=== PATIENT | female | born 1935 | race African-American/Black ===

== ENCOUNTER 2020-05-16 14:53 | Inpatient (IN) | payer MEDICARE, BC ==
[~2020-05-16] VITALS: Ht 162.6 cm; Wt 68.0 kg
[~2020-05-16 14:53] MED LIST: ASPI-1406 PO; ATOR20TA65 PO
[2020-05-16] MEDS ORDERED: SODIUM CHLORIDE 0.9% 1,000 ML IV ONE (15:45)
[2020-05-16 16:14] LABS: BASOPHILS % 0.4 % (0.0-2.0); EOSINOPHILS % 0.1 % (0.0-5.0); HEMATOCRIT. 38.8 % (36.0-48.0); HEMOGLOBIN. 12.8 g/dL (12.0-16.0); LYMPHOCYTES % 7.5 % (20.0-50.0); MEAN CORPUSCULAR VOLUME 90.6 fL (81.0-99.0); MEAN PLATELET VOLUME 8.9 fl (7.4-10.4); MONOCYTES % 8.4 % (2.0-8.0); NEUTROPHILS % 83.6 % (40.0-76.0); PLATELET 105 x1000/uL (130-400); RED BLOOD CELL COUNT 4.29 mill/uL (4.2-5.4); RED CELL DISTRIBUTION WIDTH 14.8 % (11.6-14.6)
[2020-05-16 16:21] LABS: CHLORIDE 99 mEq/L (98-107)
[2020-05-16 16:23] LABS: D-DIMER 3.28 mg/L FEU (<0.50); INR 1.1; PROTHROMBIN TIME 11.1 sec (9.6-11.0)
[2020-05-16] MEDS ORDERED: ONDANSETRON HCL 4MG/2ML INJ IV PRN (21:15)
[2020-05-16] MEDS ORDERED: ACETAMINOPHEN 325MG TABLET PO PRN (21:15)
[2020-05-16] MEDS ORDERED: CLONIDINE 0.1MG TABLET PO PRN (21:15)
[2020-05-16] MEDS ORDERED: MAGNESIUM/ALUMINUM HYDROXIDE/SIMETHICONE 30ML UDC PO PRN (21:15)
[2020-05-16] MEDS ORDERED: GUAIFENESIN 200MG/10ML SUGAR FREE UDC PO PRN (21:15)
[2020-05-16] MEDS ORDERED: ZOLPIDEM TARTRATE 5MG TABLET PO PRN (21:15)
[2020-05-16] MEDS: SODIUM CHLORIDE 0.9% INJ 3ML FLUSH IVF SCH (22:00)
[2020-05-17] MEDS: SODIUM CHLORIDE 0.9% INJ 3ML FLUSH IVF SCH ×3 (06:35→22:07)
[2020-05-17] MEDS: ENOXAPARIN 30MG/0.3ML SYR SUBCUT SCH (09:00)
[2020-05-18] MEDS ORDERED: IOHEXOL-350 100 ML BOTTLE ONE (03:00)
[2020-05-18] MEDS: ACETAMINOPHEN 325MG TABLET PO PRN (05:07)
[2020-05-18] MEDS: ENOXAPARIN 30MG/0.3ML SYR SUBCUT SCH (09:00)
[2020-05-18 11:30] VITALS: BP 115/62
[2020-05-18 12:00] VITALS: BP 115/62
[2020-05-18] MEDS: SODIUM CHLORIDE 0.9% INJ 3ML FLUSH IVF SCH ×2 (13:39→22:54)
[2020-05-18] MEDS ORDERED: [UNRECOGNIZED DRUG - CODE] PO (14:19)
[2020-05-18] MEDS ORDERED: NAPR220C61 MT (14:19)
[2020-05-18] MEDS ORDERED: ALBU6.7H9 INH (14:19)
[2020-05-18] MEDS ORDERED: BRIM10DR2 EACHEYE (14:19)
[2020-05-18] MEDS ORDERED: MECL-159 MT (14:20)
[2020-05-18] MEDS ORDERED: TRAV2.5D6 EACHEYE (14:20)
[2020-05-18] MEDS ORDERED: MECLIZINE 25MG TABLET PO PRN (19:00)
[2020-05-18 20:00] VITALS: BP 121/59
[2020-05-18] MEDS ORDERED: LEVOFLOXACIN 500MG PREMIX 100 ML IV NR (21:00)
[2020-05-19] VITALS: BP 110/55
[2020-05-19] MEDS: ACETAMINOPHEN 325MG TABLET PO PRN (00:52)
[2020-05-19 04:00] VITALS: BP 97/49
[2020-05-19 08:00] VITALS: BP 121/47
[2020-05-19] MEDS: ENOXAPARIN 30MG/0.3ML SYR SUBCUT SCH (09:00)
[2020-05-19 09:18] LABS: BASOPHILS % 0.4 % (0.0-2.0); EOSINOPHILS % 0.1 % (0.0-5.0); HEMOGLOBIN. 12.3 g/dL (12.0-16.0); LYMPHOCYTES % 11.5 % (20.0-50.0); MEAN CORPUSCULAR VOLUME 90.4 fL (81.0-99.0); PLATELET 132 x1000/uL (130-400); RED BLOOD CELL COUNT 4.09 mill/uL (4.2-5.4); RED CELL DISTRIBUTION WIDTH 15.3 % (11.6-14.6)
[2020-05-19 12:00] VITALS: BP 111/49
[2020-05-19] MEDS: SODIUM CHLORIDE 0.9% INJ 3ML FLUSH IVF SCH ×2 (13:08→22:00)
[2020-05-19] MEDS: DEXT 5%/0.45% NACL 1000ML 1,000 ML IV SCH (13:09)
[2020-05-19 16:00] VITALS: BP 99/51
[2020-05-19] MEDS ORDERED: ALBUTEROL (0.083%) 2.5MG/3ML NEB INH PRN (18:45)
[2020-05-19] MEDS ORDERED: TRAMADOL 50MG TABLET PO PRN (18:45)
[2020-05-19] MEDS: DEXAMETHASONE 10 MG/ML VIAL IV SCH (18:54)
[2020-05-19] MEDS: ERGOCALCIFEROL 50000UNITS CAPSULE PO SCH (18:54)
[2020-05-19 19:37] LABS: CLARITY URINE CLOUDY (CLEAR); COLOR URINE YELLOW (YELLOW); KETONES URINE TRACE (NEGATIVE); LEUKOCYTE ESTERASE URINE TRACE (NEGATIVE); NITRITE URINE NEGATIVE (NEGATIVE); OCCULT BLOOD URINE NEGATIVE (NEGATIVE); PROTEIN URINE 1+ (NEGATIVE); SPECIFIC GRAVITY URINE 1.024 (1.005-1.030)
[2020-05-19 20:00] VITALS: BP 104/57
[2020-05-19] MEDS: FAMOTIDINE 20MG TABLET PO SCH (21:34)
[2020-05-19] MEDS: LEVOFLOXACIN 250MG PREMIX 50 ML IV SCH (21:35)
[2020-05-20 00:33] VITALS: BP 98/41
[2020-05-20] MEDS: DEXT 5%/0.45% NACL 1000ML 1,000 ML IV SCH ×2 (02:07→15:22)
[2020-05-20 04:00] VITALS: BP 110/56
[2020-05-20] MEDS: SODIUM CHLORIDE 0.9% INJ 3ML FLUSH IVF SCH ×3 (06:17→21:46)
[2020-05-20] MEDS: DEXAMETHASONE 10 MG/ML VIAL IV SCH (09:02)
[2020-05-20] MEDS: ENOXAPARIN 30MG/0.3ML SYR SUBCUT SCH (09:03)
[2020-05-20 09:53] LABS: BASOPHILS % 0.4 % (0.0-2.0); EOSINOPHILS % 0.1 % (0.0-5.0); HEMATOCRIT. 36.1 % (36.0-48.0); LYMPHOCYTES % 8.2 % (20.0-50.0); MEAN CORPUSCULAR HEMOGLOBIN 29.8 pg (28.0-32.0); MEAN CORPUSCULAR VOLUME 89.6 fL (81.0-99.0); MEAN PLATELET VOLUME 8.7 fl (7.4-10.4); MONOCYTES % 11.8 % (2.0-8.0); NEUTROPHILS % 79.5 % (40.0-76.0); PLATELET 158 x1000/uL (130-400); RED BLOOD CELL COUNT 4.03 mill/uL (4.2-5.4); RED CELL DISTRIBUTION WIDTH 14.9 % (11.6-14.6)
[2020-05-20 09:59] LABS: CHLORIDE 104 mEq/L (98-107)
[2020-05-20 12:00] VITALS: BP 114/68
[2020-05-20 16:00] VITALS: BP 108/54
[2020-05-20 20:00] VITALS: BP 118/60
[2020-05-20] MEDS: LEVOFLOXACIN 250MG PREMIX 50 ML IV SCH (21:46)
[2020-05-20] MEDS: FAMOTIDINE 20MG TABLET PO SCH (21:46)
[2020-05-21] VITALS: BP 111/66
[2020-05-21 04:00] VITALS: BP 147/60
[2020-05-21] MEDS: SODIUM CHLORIDE 0.9% INJ 3ML FLUSH IVF SCH ×3 (06:00→21:03)
[2020-05-21 08:00] VITALS: BP_SYST 114; BP_SYST 119; BP_DIAS 65
[2020-05-21] MEDS: DEXAMETHASONE 10 MG/ML VIAL IV SCH (08:41)
[2020-05-21] MEDS: ENOXAPARIN 30MG/0.3ML SYR SUBCUT SCH (08:42)
[2020-05-21 12:00] VITALS: BP 114/59
[2020-05-21] MEDS ORDERED: ERGOCALCIFEROL 50000UNITS CAPSULE PO SCH (14:45)
[2020-05-21 16:00] VITALS: BP 122/66
[2020-05-21] MEDS: DOCUSATE SODIUM 100MG CAPSULE PO SCH (16:39)
[2020-05-21 20:00] VITALS: BP 122/65
[2020-05-21] MEDS: ASCORBIC ACID 500 MG TABLET PO SCH (21:02)
[2020-05-21] MEDS: FAMOTIDINE 20MG TABLET PO SCH (21:02)
[2020-05-21] MEDS: LEVOFLOXACIN 250MG PREMIX 50 ML IV SCH (21:02)
[2020-05-22] VITALS: BP 168/69
[2020-05-22] MEDS: DIPHENHYDRAMINE 50MG/ML VIAL IV PRN (01:41)
[2020-05-22] MEDS: SODIUM CHLORIDE 0.9% INJ 3ML FLUSH IVF SCH ×3 (01:41→22:08)
[2020-05-22 04:00] VITALS: BP 140/66
[2020-05-22 08:00] VITALS: BP_SYST 12; BP_SYST 120; BP_DIAS 57
[2020-05-22] MEDS: DOCUSATE SODIUM 100MG CAPSULE PO SCH ×2 (09:24→16:53)
[2020-05-22] MEDS: ASCORBIC ACID 500 MG TABLET PO SCH ×2 (09:24→22:07)
[2020-05-22] MEDS: ENOXAPARIN 30MG/0.3ML SYR SUBCUT SCH (09:25)
[2020-05-22] MEDS: DEXAMETHASONE 10 MG/ML VIAL IV SCH (09:25)
[2020-05-22 12:00] VITALS: BP 130/69
[2020-05-22] MEDS: IPRATROPIUM/ALBUTEROL 0.5-3(2.5)MG/3ML NEB HHN SCH (18:13)
[2020-05-22 20:00] VITALS: BP 117/61
[2020-05-22] MEDS: METHYLPREDNISOLONE SOD SUCC 125 MG/2 ML VIAL IV SCH (22:07)
[2020-05-22] MEDS: FAMOTIDINE 20MG TABLET PO SCH (22:07)
[2020-05-22] MEDS: LEVOFLOXACIN 250MG PREMIX 50 ML IV SCH (22:08)
[2020-05-23] VITALS: BP 135/69
[2020-05-23 04:00] VITALS: BP 133/66
[2020-05-23] MEDS: METHYLPREDNISOLONE SOD SUCC 125 MG/2 ML VIAL IV SCH ×3 (06:39→21:24)
[2020-05-23] MEDS: SODIUM CHLORIDE 0.9% INJ 3ML FLUSH IVF SCH ×3 (06:39→21:24)
[2020-05-23 08:00] VITALS: BP 132/64
[2020-05-23] MEDS: IPRATROPIUM/ALBUTEROL 0.5-3(2.5)MG/3ML NEB HHN SCH ×3 (09:05→22:37)
[2020-05-23] MEDS: ENOXAPARIN 30MG/0.3ML SYR SUBCUT SCH (10:29)
[2020-05-23] MEDS: DOCUSATE SODIUM 100MG CAPSULE PO SCH ×2 (10:30→18:04)
[2020-05-23] MEDS: ASCORBIC ACID 500 MG TABLET PO SCH ×2 (10:30→21:24)
[2020-05-23] MEDS: ACETAMINOPHEN 325MG TABLET PO PRN (10:31)
[2020-05-23 11:45] LABS: BG BASE EXCESS -1.2 mmol/L (-2.0-2.0); BG CARBOXYHEMOGLOBIN 0.4 % (0.5-1.5); BG DEOXYHEMOGLOBIN 17.5 % (0.0-5.0); BG FRACTION INSPIRED OXYGEN 100; BG HCO3 ACT 20.6 mmol/L (22.0-26.0); BG METHEMOGLOBIN 0.2 % (0.0-1.5); BG OXYGEN SATURATION 82.4 % (92.0-98.5); BG OXYHEMOGLOBIN 81.9 % (94.0-97.0); BG PO2 45.1 mmHg (75.0-100.0); BG SAMPLE SITE RIGHT RADIAL; BG TOTAL HEMOGLOBIN 13.9 g/dL (12.0-18.0); BG VENT MODE MASK - NRB
[2020-05-23 12:00] VITALS: BP 140/70
[2020-05-23 16:00] VITALS: BP 135/70
[2020-05-23 16:06] LABS: BG BASE EXCESS 0.8 mmol/L (-2.0-2.0); BG CARBOXYHEMOGLOBIN 0.3 % (0.5-1.5); BG DEOXYHEMOGLOBIN 5.7 % (0.0-5.0); BG HCO3 ACT 23.1 mmol/L (22.0-26.0); BG METHEMOGLOBIN 0.2 % (0.0-1.5); BG OXYGEN SATURATION 94.3 % (92.0-98.5); BG OXYHEMOGLOBIN 93.8 % (94.0-97.0); BG PCO2 30.4 mmHg (35.0-45.0); BG PH 7.499 (7.350-7.450); BG PO2 73.1 mmHg (75.0-100.0); BG SAMPLE SITE RIGHT BRACHIAL; BG TOTAL HEMOGLOBIN 13.2 g/dL (12.0-18.0); BG VENT MODE MASK - BIPAP
[2020-05-23 17:38] LABS: CHLORIDE 107 mEq/L (98-107)
[2020-05-23 17:40] LABS: HEMATOCRIT. 37.2 % (36.0-48.0); HEMOGLOBIN. 12.1 g/dL (12.0-16.0); MEAN CORPUSCULAR HEMOGLOBIN 29.4 pg (28.0-32.0); MEAN CORPUSCULAR VOLUME 90.8 fL (81.0-99.0); MEAN PLATELET VOLUME 8.5 fl (7.4-10.4); PLATELET 181 x1000/uL (130-400); RED CELL DISTRIBUTION WIDTH 15.7 % (11.6-14.6)
[2020-05-23 18:37] LABS: PLATELET ESTIMATE NORMAL
[2020-05-23 20:00] VITALS: BP 113/74
[2020-05-23] MEDS: FAMOTIDINE 20MG TABLET PO SCH (21:24)
[2020-05-24] VITALS: BP 143/84
[2020-05-24] MEDS: IPRATROPIUM/ALBUTEROL 0.5-3(2.5)MG/3ML NEB HHN SCH ×3 (03:41→12:00)
[2020-05-24 04:00] VITALS: BP 122/68
[2020-05-24] MEDS: METHYLPREDNISOLONE SOD SUCC 125 MG/2 ML VIAL IV SCH ×3 (05:11→21:36)
[2020-05-24] MEDS: SODIUM CHLORIDE 0.9% INJ 3ML FLUSH IVF SCH ×3 (05:11→21:11)
[2020-05-24 08:00] VITALS: BP 134/63
[2020-05-24] MEDS: DOCUSATE SODIUM 100MG CAPSULE PO SCH ×2 (08:33→17:00)
[2020-05-24] MEDS: ASCORBIC ACID 500 MG TABLET PO SCH ×2 (08:33→21:11)
[2020-05-24] MEDS: ENOXAPARIN 30MG/0.3ML SYR SUBCUT SCH (08:34)
[2020-05-24 12:00] VITALS: BP 133/69
[2020-05-24] MEDS ORDERED: ENOXAPARIN 40MG/0.4ML SYR SUBCUT NR (12:45)
[2020-05-24 14:02] LABS: BG BASE EXCESS 1.3 mmol/L (-2.0-2.0); BG CARBOXYHEMOGLOBIN 0.3 % (0.5-1.5); BG DEOXYHEMOGLOBIN 8.1 % (0.0-5.0); BG FRACTION INSPIRED OXYGEN 100; BG HCO3 ACT 23.8 mmol/L (22.0-26.0); BG METHEMOGLOBIN 0.1 % (0.0-1.5); BG OXYGEN SATURATION 91.9 % (92.0-98.5); BG OXYHEMOGLOBIN 91.5 % (94.0-97.0); BG PCO2 31.5 mmHg (35.0-45.0); BG PH 7.497 (7.350-7.450); BG PO2 61.5 mmHg (75.0-100.0); BG SAMPLE SITE RIGHT RADIAL; BG TOTAL HEMOGLOBIN 13.1 g/dL (12.0-18.0); BG TOTAL RESPIRATORY RATE 29 b/min; BG VENT MODE MASK - BIPAP
[2020-05-24 16:00] VITALS: BP 139/85
[2020-05-24 20:00] VITALS: BP 138/78
[2020-05-24] MEDS: FAMOTIDINE 20MG TABLET PO SCH (21:11)
[2020-05-24] MEDS: ENOXAPARIN 80MG/0.8ML SYR SUBCUT SCH (22:16)
[2020-05-25] VITALS: BP 133/78
[2020-05-25 04:00] VITALS: BP 127/59
[2020-05-25] MEDS: METHYLPREDNISOLONE SOD SUCC 125 MG/2 ML VIAL IV SCH ×3 (05:37→23:03)
[2020-05-25] MEDS: SODIUM CHLORIDE 0.9% INJ 3ML FLUSH IVF SCH ×3 (06:08→21:28)
[2020-05-25 08:00] VITALS: BP 130/61
[2020-05-25] MEDS: ASCORBIC ACID 500 MG TABLET PO SCH ×2 (09:15→21:28)
[2020-05-25] MEDS: DOCUSATE SODIUM 100MG CAPSULE PO SCH ×2 (09:15→17:00)
[2020-05-25] MEDS: ENOXAPARIN 80MG/0.8ML SYR SUBCUT SCH ×2 (09:16→21:28)
[2020-05-25 12:00] VITALS: BP 145/79
[2020-05-25] MEDS: PANTOPRAZOLE SODIUM 40 MG/VIAL IV SCH (13:34)
[2020-05-25] MEDS: DEXT 5%/0.45% NACL 1000ML 1,000 ML IV SCH (15:43)
[2020-05-25 16:52] LABS: BG BASE EXCESS 0.8 mmol/L (-2.0-2.0); BG CARBOXYHEMOGLOBIN 0.7 % (0.5-1.5); BG DEOXYHEMOGLOBIN 24.5 % (0.0-5.0); BG FRACTION INSPIRED OXYGEN 50; BG HCO3 ACT 23.1 mmol/L (22.0-26.0); BG METHEMOGLOBIN 0.2 % (0.0-1.5); BG OXYGEN SATURATION 75.3 % (92.0-98.5); BG OXYHEMOGLOBIN 74.6 % (94.0-97.0); BG PCO2 30.3 mmHg (35.0-45.0); BG PO2 39.1 mmHg (75.0-100.0); BG SAMPLE SITE RIGHT RADIAL; BG TOTAL HEMOGLOBIN 13.5 g/dL (12.0-18.0); BG TOTAL RESPIRATORY RATE 22 b/min; BG VENT MODE MASK - BIPAP
[2020-05-25 18:00] VITALS: BP 127/62
[2020-05-25 20:00] VITALS: BP 154/70
[2020-05-25] MEDS: IPRATROPIUM/ALBUTEROL 0.5-3(2.5)MG/3ML NEB HHN SCH (21:32)
[2020-05-25 22:19] LABS: BG BASE EXCESS -0.4 mmol/L (-2.0-2.0); BG CARBOXYHEMOGLOBIN 0.2 % (0.5-1.5); BG DEOXYHEMOGLOBIN 6.2 % (0.0-5.0); BG FRACTION INSPIRED OXYGEN 100; BG HCO3 ACT 22.4 mmol/L (22.0-26.0); BG METHEMOGLOBIN 0.3 % (0.0-1.5); BG OXYGEN SATURATION 93.8 % (92.0-98.5); BG OXYHEMOGLOBIN 93.3 % (94.0-97.0); BG PCO2 31.2 mmHg (35.0-45.0); BG PH 7.473 (7.350-7.450); BG PO2 71.3 mmHg (75.0-100.0); BG SAMPLE SITE RIGHT RADIAL; BG TOTAL HEMOGLOBIN 13.5 g/dL (12.0-18.0); BG VENT MODE MASK - BIPAP
[2020-05-26] VITALS: BP 141/71
[2020-05-26] MEDS: IPRATROPIUM/ALBUTEROL 0.5-3(2.5)MG/3ML NEB HHN SCH ×4 (01:26→23:27)
[2020-05-26 04:00] VITALS: BP 136/70
[2020-05-26] MEDS: SODIUM CHLORIDE 0.9% INJ 3ML FLUSH IVF SCH ×2 (06:20→15:13)
[2020-05-26] MEDS: METHYLPREDNISOLONE SOD SUCC 125 MG/2 ML VIAL IV SCH ×3 (06:36→22:44)
[2020-05-26 08:00] VITALS: BP 113/49
[2020-05-26] MEDS: DOCUSATE SODIUM 100MG CAPSULE PO SCH ×2 (09:27→17:00)
[2020-05-26] MEDS: ASCORBIC ACID 500 MG TABLET PO SCH ×2 (09:28→22:43)
[2020-05-26] MEDS: ERGOCALCIFEROL 50000UNITS CAPSULE PO SCH (09:28)
[2020-05-26] MEDS: ENOXAPARIN 80MG/0.8ML SYR SUBCUT SCH ×2 (09:29→22:43)
[2020-05-26] MEDS: PANTOPRAZOLE SODIUM 40 MG/VIAL IV SCH (09:30)
[2020-05-26] MEDS ORDERED: FUROSEMIDE 40MG/4ML VIAL IVP NR (09:45)
[2020-05-26 10:07] LABS: BG BASE EXCESS 0.7 mmol/L (-2.0-2.0); BG CARBOXYHEMOGLOBIN 0.6 % (0.5-1.5); BG DEOXYHEMOGLOBIN 7.3 % (0.0-5.0); BG HCO3 ACT 23.7 mmol/L (22.0-26.0); BG OXYGEN SATURATION 92.7 % (92.0-98.5); BG OXYHEMOGLOBIN 92.1 % (94.0-97.0); BG PCO2 33.2 mmHg (35.0-45.0); BG PH 7.472 (7.350-7.450); BG PO2 65.7 mmHg (75.0-100.0); BG SAMPLE SITE RIGHT BRACHIAL; BG TOTAL HEMOGLOBIN 13.2 g/dL (12.0-18.0); BG VENT MODE MASK - BIPAP
[2020-05-26 12:00] VITALS: BP 113/49
[2020-05-26 14:34] LABS: HEMATOCRIT. 38.8 % (36.0-48.0); HEMOGLOBIN. 12.5 g/dL (12.0-16.0); MEAN CORPUSCULAR HEMOGLOBIN 29.5 pg (28.0-32.0); MEAN CORPUSCULAR VOLUME 91.7 fL (81.0-99.0); MEAN PLATELET VOLUME 8.7 fl (7.4-10.4); PLATELET 178 x1000/uL (130-400); RED BLOOD CELL COUNT 4.23 mill/uL (4.2-5.4); RED CELL DISTRIBUTION WIDTH 15.8 % (11.6-14.6)
[2020-05-26 14:38] LABS: CHLORIDE 115 mEq/L (98-107)
[2020-05-26 16:00] VITALS: BP 117/79
[2020-05-26 16:35] LABS: PLATELET ESTIMATE NORMAL
[2020-05-26 20:00] VITALS: BP 136/83
[2020-05-26] MEDS: DIPHENHYDRAMINE 50MG/ML VIAL IV PRN (23:16)
[2020-05-27] VITALS: BP 142/76
[2020-05-27 04:00] VITALS: BP 154/79
[2020-05-27] MEDS: IPRATROPIUM/ALBUTEROL 0.5-3(2.5)MG/3ML NEB HHN SCH ×3 (04:42→12:59)
[2020-05-27 05:27] VITALS: BP 154/79
[2020-05-27] MEDS: DOCUSATE SODIUM 100MG CAPSULE PO SCH ×3 (09:00→17:00)
[2020-05-27] MEDS: ASCORBIC ACID 500 MG TABLET PO SCH ×3 (09:00→23:26)
[2020-05-27] MEDS: ENOXAPARIN 80MG/0.8ML SYR SUBCUT SCH ×2 (11:34→23:26)
[2020-05-27] MEDS: DEXT 5%/0.45% NACL 1000ML 1,000 ML IV SCH (11:34)
[2020-05-27] MEDS: METHYLPREDNISOLONE SOD SUCC 125 MG/2 ML VIAL IV SCH ×2 (11:35→23:25)
[2020-05-27] MEDS: FAMOTIDINE 20MG/2ML VIAL IV SCH (11:35)
[2020-05-27 13:46] LABS: BG BASE EXCESS -0.8 mmol/L (-2.0-2.0); BG CARBOXYHEMOGLOBIN 0.3 % (0.5-1.5); BG DEOXYHEMOGLOBIN 12.4 % (0.0-5.0); BG FRACTION INSPIRED OXYGEN 100; BG HCO3 ACT 22.4 mmol/L (22.0-26.0); BG METHEMOGLOBIN 0.3 % (0.0-1.5); BG OXYGEN SATURATION 87.5 % (92.0-98.5); BG PCO2 32.8 mmHg (35.0-45.0); BG PH 7.452 (7.350-7.450); BG PO2 52.9 mmHg (75.0-100.0); BG SAMPLE SITE RIGHT BRACHIAL; BG TOTAL HEMOGLOBIN 13.5 g/dL (12.0-18.0); BG VENT MODE MASK - BIPAP
[2020-05-27] MEDS: SODIUM CHLORIDE 0.9% INJ 3ML FLUSH IVF SCH ×2 (18:12→23:26)
[2020-05-27 20:00] VITALS: BP 145/69
[2020-05-28] VITALS: BP 134/70
[2020-05-28 04:00] VITALS: BP 136/72
[2020-05-28 08:00] VITALS: BP 140/78
[2020-05-28] MEDS: METHYLPREDNISOLONE SOD SUCC 125 MG/2 ML VIAL IV SCH ×2 (08:33→22:35)
[2020-05-28] MEDS: DOCUSATE SODIUM 100MG CAPSULE PO SCH ×3 (08:33→16:05)
[2020-05-28] MEDS: ASCORBIC ACID 500 MG TABLET PO SCH ×3 (08:33→21:00)
[2020-05-28] MEDS: FAMOTIDINE 20MG/2ML VIAL IV SCH (08:33)
[2020-05-28] MEDS: ENOXAPARIN 80MG/0.8ML SYR SUBCUT SCH ×2 (08:35→22:35)
[2020-05-28 12:00] VITALS: BP 123/58
[2020-05-28 13:05] LABS: BG BASE EXCESS 1.5 mmol/L (-2.0-2.0); BG CARBOXYHEMOGLOBIN 0.7 % (0.5-1.5); BG DEOXYHEMOGLOBIN 10.6 % (0.0-5.0); BG FRACTION INSPIRED OXYGEN 100; BG HCO3 ACT 24.8 mmol/L (22.0-26.0); BG METHEMOGLOBIN 0.2 % (0.0-1.5); BG OXYGEN SATURATION 89.3 % (92.0-98.5); BG OXYHEMOGLOBIN 88.5 % (94.0-97.0); BG PCO2 35.1 mmHg (35.0-45.0); BG PH 7.467 (7.350-7.450); BG PO2 56.2 mmHg (75.0-100.0); BG SAMPLE SITE RIGHT BRACHIAL; BG TOTAL HEMOGLOBIN 13.8 g/dL (12.0-18.0); BG TOTAL RESPIRATORY RATE 21 b/min; BG VENT MODE MASK - BIPAP
[2020-05-28] MEDS: IPRATROPIUM/ALBUTEROL 0.5-3(2.5)MG/3ML NEB HHN SCH ×2 (13:38→22:15)
[2020-05-28] MEDS: SODIUM CHLORIDE 0.9% INJ 3ML FLUSH IVF SCH ×2 (14:00→22:36)
[2020-05-28 16:00] VITALS: BP 133/60
[2020-05-28 20:00] VITALS: BP 146/77
[2020-05-28] MEDS: DEXT 5%/0.45% NACL 1000ML 1,000 ML IV SCH ×2 (21:15→22:35)
[2020-05-29 04:00] VITALS: BP 160/89
[2020-05-29] MEDS: SODIUM CHLORIDE 0.9% INJ 3ML FLUSH IVF SCH ×3 (05:00→21:24)
[2020-05-29 08:00] VITALS: BP 129/89
[2020-05-29 08:51] VITALS: BP 129/89
[2020-05-29] MEDS: ASCORBIC ACID 500 MG TABLET PO SCH ×2 (09:00→21:00)
[2020-05-29] MEDS: DOCUSATE SODIUM 100MG CAPSULE PO SCH ×2 (09:00→17:00)
[2020-05-29] MEDS: IPRATROPIUM/ALBUTEROL 0.5-3(2.5)MG/3ML NEB HHN SCH ×3 (09:19→21:49)
[2020-05-29 12:00] VITALS: BP 152/95
[2020-05-29 13:00] LABS: BG BASE EXCESS -0.4 mmol/L (-2.0-2.0); BG CARBOXYHEMOGLOBIN 0.2 % (0.5-1.5); BG DEOXYHEMOGLOBIN 14.7 % (0.0-5.0); BG FRACTION INSPIRED OXYGEN 100; BG HCO3 ACT 23.3 mmol/L (22.0-26.0); BG OXYGEN SATURATION 85.3 % (92.0-98.5); BG OXYHEMOGLOBIN 85.1 % (94.0-97.0); BG PCO2 35.1 mmHg (35.0-45.0); BG PH 7.439 (7.350-7.450); BG PO2 50.5 mmHg (75.0-100.0); BG SAMPLE SITE RIGHT BRACHIAL; BG TOTAL HEMOGLOBIN 14.2 g/dL (12.0-18.0); BG TOTAL RESPIRATORY RATE 35 b/min; BG VENT MODE MASK - BIPAP
[2020-05-29] MEDS: METHYLPREDNISOLONE SOD SUCC 125 MG/2 ML VIAL IV SCH ×2 (13:19→21:24)
[2020-05-29] MEDS: FAMOTIDINE 20MG/2ML VIAL IV SCH (13:19)
[2020-05-29] MEDS: ENOXAPARIN 80MG/0.8ML SYR SUBCUT SCH ×2 (13:26→21:24)
[2020-05-29] MEDS: DEXT 5%/0.45% NACL 1000ML 1,000 ML IV SCH (18:18)
[2020-05-29 20:00] VITALS: BP 131/56
[2020-05-30] VITALS: BP 140/76
[2020-05-30 04:00] VITALS: BP 135/69
[2020-05-30] MEDS: SODIUM CHLORIDE 0.9% INJ 3ML FLUSH IVF SCH ×3 (05:10→22:22)
[2020-05-30 08:00] VITALS: BP 135/76
[2020-05-30] MEDS: IPRATROPIUM/ALBUTEROL 0.5-3(2.5)MG/3ML NEB HHN SCH ×3 (08:27→20:18)
[2020-05-30] MEDS: DOCUSATE SODIUM 100MG CAPSULE PO SCH ×2 (09:00→17:00)
[2020-05-30] MEDS: ASCORBIC ACID 500 MG TABLET PO SCH ×2 (09:00→20:37)
[2020-05-30] MEDS: FAMOTIDINE 20MG/2ML VIAL IV SCH (09:51)
[2020-05-30] MEDS: METHYLPREDNISOLONE SOD SUCC 125 MG/2 ML VIAL IV SCH (09:51)
[2020-05-30] MEDS: ENOXAPARIN 80MG/0.8ML SYR SUBCUT SCH ×2 (09:52→20:35)
[2020-05-30 11:02] LABS: BG BASE EXCESS -0.9 mmol/L (-2.0-2.0); BG CARBOXYHEMOGLOBIN 0.4 % (0.5-1.5); BG DEOXYHEMOGLOBIN 10.7 % (0.0-5.0); BG HCO3 ACT 22.5 mmol/L (22.0-26.0); BG METHEMOGLOBIN 0.3 % (0.0-1.5); BG OXYGEN SATURATION 89.2 % (92.0-98.5); BG OXYHEMOGLOBIN 88.6 % (94.0-97.0); BG PCO2 33.9 mmHg (35.0-45.0); BG PO2 57.1 mmHg (75.0-100.0); BG SAMPLE SITE RIGHT BRACHIAL; BG TOTAL HEMOGLOBIN 14.7 g/dL (12.0-18.0); BG VENT MODE MASK - BIPAP
[2020-05-30 12:00] VITALS: BP 150/74
[2020-05-30 20:00] VITALS: BP 147/74
[2020-05-30] MEDS: DEXT 5%/0.45% NACL 1000ML 1,000 ML IV SCH (20:47)
[2020-05-30] MEDS: METHYLPREDNISOLONE SOD SUCC 40 MG/ML VIAL IV SCH (20:47)
[2020-05-30 20:56] LABS: BG BASE EXCESS -1.3 mmol/L (-2.0-2.0); BG CARBOXYHEMOGLOBIN 0.5 % (0.5-1.5); BG DEOXYHEMOGLOBIN 16.8 % (0.0-5.0); BG FRACTION INSPIRED OXYGEN 100; BG METHEMOGLOBIN 0.1 % (0.0-1.5); BG OXYGEN SATURATION 83.1 % (92.0-98.5); BG OXYHEMOGLOBIN 82.6 % (94.0-97.0); BG PH 7.441 (7.350-7.450); BG PO2 48.3 mmHg (75.0-100.0); BG TOTAL HEMOGLOBIN 14.4 g/dL (12.0-18.0); BG VENT MODE MASK - BIPAP
[2020-05-30] MEDS ORDERED: DIGOXIN 500MCG/2ML AMP IV NR (21:00)
[2020-05-30 21:29] VITALS: BP 122/42
[2020-05-30] MEDS ORDERED: ALBUTEROL 6.7GM HFA INHALER INH SCH (23:00)
[2020-05-30 23:06] LABS: BG BASE EXCESS -1.5 mmol/L (-2.0-2.0); BG CARBOXYHEMOGLOBIN 0.9 % (0.5-1.5); BG DEOXYHEMOGLOBIN 11.5 % (0.0-5.0); BG FRACTION INSPIRED OXYGEN 100; BG HCO3 ACT 21.2 mmol/L (22.0-26.0); BG METHEMOGLOBIN 0.1 % (0.0-1.5); BG OXYGEN SATURATION 88.4 % (92.0-98.5); BG OXYHEMOGLOBIN 87.5 % (94.0-97.0); BG PCO2 30.7 mmHg (35.0-45.0); BG PH 7.458 (7.350-7.450); BG PO2 54.7 mmHg (75.0-100.0); BG TOTAL HEMOGLOBIN 14.4 g/dL (12.0-18.0); BG VENT MODE MASK - NRB
[2020-05-31] VITALS (30 sets, daily range): BP systolic 75–199; BP diastolic 17–168
[2020-05-31] MEDS: IPRATROPIUM/ALBUTEROL 0.5-3(2.5)MG/3ML NEB HHN SCH ×4 (01:55→20:55)
[2020-05-31] MEDS: SODIUM CHLORIDE 0.9% INJ 3ML FLUSH IVF SCH ×3 (06:17→21:08)
[2020-05-31] MEDS: ASCORBIC ACID 500 MG TABLET PO SCH ×2 (08:33→21:00)
[2020-05-31] MEDS: DOCUSATE SODIUM 100MG CAPSULE PO SCH ×2 (08:33→17:00)
[2020-05-31] MEDS: ENOXAPARIN 80MG/0.8ML SYR SUBCUT SCH (08:33)
[2020-05-31] MEDS: METHYLPREDNISOLONE SOD SUCC 40 MG/ML VIAL IV SCH ×2 (08:34→20:56)
[2020-05-31] MEDS: FAMOTIDINE 20MG/2ML VIAL IV SCH ×2 (08:34→21:06)
[2020-05-31] MEDS: DEXT 5%/0.45% NACL 1000ML 1,000 ML IV SCH ×2 (09:40→20:57)
[2020-05-31] MEDS ORDERED: LIDOCAINE HCL/EPINEPHRINE 1%-EPI 1:100,000 20 ML VIAL ONE (09:47)
[2020-05-31 10:53] LABS: BG CARBOXYHEMOGLOBIN 0.7 % (0.5-1.5); BG DEOXYHEMOGLOBIN 17.4 % (0.0-5.0); BG FRACTION INSPIRED OXYGEN 100; BG HCO3 ACT 21.7 mmol/L (22.0-26.0); BG METHEMOGLOBIN 0.3 % (0.0-1.5); BG OXYGEN SATURATION 82.4 % (92.0-98.5); BG OXYHEMOGLOBIN 81.6 % (94.0-97.0); BG PH 7.423 (7.350-7.450); BG PO2 46.8 mmHg (75.0-100.0); BG SAMPLE SITE RIGHT BRACHIAL; BG TOTAL HEMOGLOBIN 14.1 g/dL (12.0-18.0); BG TOTAL RESPIRATORY RATE 27 b/min; BG VENT MODE MASK - BIPAP
[2020-05-31] MEDS ORDERED: ROCURONIUM BROMIDE 10MG/ML VIAL 5ML IV ONE ×2 (11:52→12:56)
[2020-05-31 12:36] LABS: BG BASE EXCESS -7.1 mmol/L (-2.0-2.0); BG CARBOXYHEMOGLOBIN 0.2 % (0.5-1.5); BG DEOXYHEMOGLOBIN 11.6 % (0.0-5.0); BG FRACTION INSPIRED OXYGEN 100; BG HCO3 ACT 19.5 mmol/L (22.0-26.0); BG METHEMOGLOBIN 0.4 % (0.0-1.5); BG OXYGEN SATURATION 88.3 % (92.0-98.5); BG OXYHEMOGLOBIN 87.8 % (94.0-97.0); BG PCO2 43.5 mmHg (35.0-45.0); BG PO2 66.1 mmHg (75.0-100.0); BG SAMPLE SITE ALINE; BG TOTAL HEMOGLOBIN 12.4 g/dL (12.0-18.0); BG VENT MODE VENT - AC
[2020-05-31] MEDS ORDERED: FENTANYL CITRATE/PF 50MCG/ML 2ML VIAL ONE (12:39)
[2020-05-31] MEDS ORDERED: SODIUM BICARBONATE 8.4% 1 MEQ/ML 50ML SYR IV ONE (12:49)
[2020-05-31 13:56] LABS: BG BASE EXCESS -1.8 mmol/L (-2.0-2.0); BG CARBOXYHEMOGLOBIN 0.5 % (0.5-1.5); BG DEOXYHEMOGLOBIN 8.5 % (0.0-5.0); BG FRACTION INSPIRED OXYGEN 100; BG METHEMOGLOBIN 0.3 % (0.0-1.5); BG OXYGEN SATURATION 91.4 % (92.0-98.5); BG OXYHEMOGLOBIN 90.7 % (94.0-97.0); BG PCO2 56.5 mmHg (35.0-45.0); BG PEEP (cmH2O) 7.5 cmH2O; BG PO2 72.9 mmHg (75.0-100.0); BG SAMPLE SITE ALINE; BG TOTAL HEMOGLOBIN 14.1 g/dL (12.0-18.0); BG VENT MODE VENT - AC
[2020-05-31] MEDS ORDERED: HYDRALAZINE 20MG/ML VIAL IV PRN (16:30)
[2020-05-31 19:38] LABS: BG BASE EXCESS -3.4 mmol/L (-2.0-2.0); BG CARBOXYHEMOGLOBIN 0.2 % (0.5-1.5); BG DEOXYHEMOGLOBIN 15.6 % (0.0-5.0); BG FRACTION INSPIRED OXYGEN 100; BG HCO3 ACT 21.8 mmol/L (22.0-26.0); BG METHEMOGLOBIN 0.2 % (0.0-1.5); BG OXYGEN SATURATION 84.3 % (92.0-98.5); BG PCO2 40.3 mmHg (35.0-45.0); BG PH 7.352 (7.350-7.450); BG SAMPLE SITE ALINE; BG TOTAL HEMOGLOBIN 14.1 g/dL (12.0-18.0); BG VENT MODE VENT - AC
[2020-05-31] MEDS ORDERED: ACETAMINOPHEN 650MG SUPP PR PRN (20:45)
[2020-05-31] MEDS ORDERED: LORAZEPAM 2MG/ML CPJ IV PRN (20:45)
[2020-05-31] MEDS: PROPOFOL 10MG/ML 100ML 100 ML IV PRN (21:06)
[2020-06-01] VITALS (67 sets, daily range): BP systolic 28–179; BP diastolic 17–118
[2020-06-01] MEDS: IPRATROPIUM/ALBUTEROL 0.5-3(2.5)MG/3ML NEB HHN SCH ×4 (03:07→21:41)
[2020-06-01] MEDS: SODIUM CHLORIDE 0.9% INJ 3ML FLUSH IVF SCH ×3 (06:00→21:21)
[2020-06-01 06:37] LABS: INR 1.3; PARTIAL THROMBOPLASTIN TIME 24.5 sec (23.4-31.0); PROTHROMBIN TIME 13.4 sec (9.6-11.0)
[2020-06-01 06:38] LABS: CHLORIDE 127 mEq/L (98-107)
[2020-06-01 06:41] LABS: HEMATOCRIT. 43.3 % (36.0-48.0); HEMOGLOBIN. 13.7 g/dL (12.0-16.0); MEAN CORPUSCULAR HEMOGLOBIN 30.1 pg (28.0-32.0); MEAN CORPUSCULAR VOLUME 94.8 fL (81.0-99.0); MEAN PLATELET VOLUME 9.7 fl (7.4-10.4); PLATELET 80 x1000/uL (130-400); RED BLOOD CELL COUNT 4.57 mill/uL (4.2-5.4); RED CELL DISTRIBUTION WIDTH 15.9 % (11.6-14.6)
[2020-06-01] MEDS: ASCORBIC ACID 500 MG TABLET PO SCH ×2 (09:00→21:21)
[2020-06-01] MEDS: DOCUSATE SODIUM 100MG CAPSULE PO SCH ×2 (09:00→17:00)
[2020-06-01 09:55] LABS: BG BASE EXCESS -1.7 mmol/L (-2.0-2.0); BG CARBOXYHEMOGLOBIN 0.7 % (0.5-1.5); BG DEOXYHEMOGLOBIN 19.3 % (0.0-5.0); BG FRACTION INSPIRED OXYGEN 100; BG HCO3 ACT 24.6 mmol/L (22.0-26.0); BG METHEMOGLOBIN 0.1 % (0.0-1.5); BG OXYGEN SATURATION 80.5 % (92.0-98.5); BG OXYHEMOGLOBIN 79.9 % (94.0-97.0); BG PCO2 47.4 mmHg (35.0-45.0); BG PH 7.333 (7.350-7.450); BG PO2 48.5 mmHg (75.0-100.0); BG SAMPLE SITE RIGHT BRACHIAL; BG TOTAL HEMOGLOBIN 14.5 g/dL (12.0-18.0); BG VENT MODE VENT - AC
[2020-06-01] MEDS ORDERED: CEFAZOLIN 1000MG PREMIX 50 ML IV SCH (10:00)
[2020-06-01] MEDS: METHYLPREDNISOLONE SOD SUCC 40 MG/ML VIAL IV SCH ×2 (13:01→21:21)
[2020-06-01] MEDS: FAMOTIDINE 20MG/2ML VIAL IV SCH (13:01)
[2020-06-01] MEDS ORDERED: LIDOCAINE HCL 1% 20ML VIAL (Pyxis) INJ ONE (13:19)
[2020-06-01] MEDS ORDERED: SODIUM BICARBONATE 4% (2.4MEQ) 5ML VIAL IV ONE (13:19)
[2020-06-01] MEDS ORDERED: MIDAZOLAM HCL 5 MG/5 ML VIAL ONE ×2 (14:26→14:27)
[2020-06-01] MEDS ORDERED: FENTANYL CITRATE/PF 50MCG/ML 2ML VIAL ONE (14:27)
[2020-06-01 14:29] LABS: PLATELET ESTIMATE DECREASED
[2020-06-01 16:33] LABS: BG BASE EXCESS -2.9 mmol/L (-2.0-2.0); BG CARBOXYHEMOGLOBIN 0.9 % (0.5-1.5); BG DEOXYHEMOGLOBIN 11.3 % (0.0-5.0); BG FRACTION INSPIRED OXYGEN 100; BG HCO3 ACT 22.4 mmol/L (22.0-26.0); BG METHEMOGLOBIN 0.1 % (0.0-1.5); BG OXYGEN SATURATION 88.6 % (92.0-98.5); BG OXYHEMOGLOBIN 87.7 % (94.0-97.0); BG PCO2 40.7 mmHg (35.0-45.0); BG PH 7.358 (7.350-7.450); BG PO2 58.5 mmHg (75.0-100.0); BG SAMPLE SITE RIGHT BRACHIAL; BG TOTAL HEMOGLOBIN 13.8 g/dL (12.0-18.0); BG VENT MODE VENT - AC
[2020-06-01] MEDS: PROPOFOL 10MG/ML 100ML 100 ML IV PRN (17:45)
[2020-06-01 20:22] LABS: BG BASE EXCESS -1.6 mmol/L (-2.0-2.0); BG CARBOXYHEMOGLOBIN 0.7 % (0.5-1.5); BG DEOXYHEMOGLOBIN 5.4 % (0.0-5.0); BG FRACTION INSPIRED OXYGEN 100; BG HCO3 ACT 22.1 mmol/L (22.0-26.0); BG METHEMOGLOBIN 0.3 % (0.0-1.5); BG OXYGEN SATURATION 94.5 % (92.0-98.5); BG OXYHEMOGLOBIN 93.6 % (94.0-97.0); BG PCO2 34.4 mmHg (35.0-45.0); BG PH 7.426 (7.350-7.450); BG PO2 71.6 mmHg (75.0-100.0); BG SAMPLE SITE LEFT RADIAL; BG TOTAL HEMOGLOBIN 14.1 g/dL (12.0-18.0); BG VENT MODE AC/PRVC
[2020-06-01] MEDS: DEXT 5% WATER + KCL 20MEQ/L 1,000 ML IV SCH (21:22)
[2020-06-01 23:57] LABS: CLARITY URINE CLOUDY (CLEAR); COLOR URINE YELLOW (YELLOW); KETONES URINE NEGATIVE (NEGATIVE); LEUKOCYTE ESTERASE URINE TRACE (NEGATIVE); NITRITE URINE NEGATIVE (NEGATIVE); OCCULT BLOOD URINE 2+ (NEGATIVE); PROTEIN URINE 2+ (NEGATIVE); SPECIFIC GRAVITY URINE 1.022 (1.005-1.030)
[2020-06-02] VITALS (89 sets, daily range): BP systolic 91–156; BP diastolic 58–97
[2020-06-02] MEDS: IPRATROPIUM/ALBUTEROL 0.5-3(2.5)MG/3ML NEB HHN SCH ×4 (01:15→23:46)
[2020-06-02] MEDS: SODIUM CHLORIDE 0.9% INJ 3ML FLUSH IVF SCH ×3 (05:13→21:17)
[2020-06-02] MEDS: DEXT 5% WATER + KCL 20MEQ/L 1,000 ML IV SCH ×3 (05:55→22:58)
[2020-06-02] MEDS: PROPOFOL 10MG/ML 100ML 100 ML IV PRN (06:02)
[2020-06-02 06:51] LABS: HEMATOCRIT. 40.2 % (36.0-48.0); HEMOGLOBIN. 12.8 g/dL (12.0-16.0); MEAN CORPUSCULAR HEMOGLOBIN 30.3 pg (28.0-32.0); MEAN PLATELET VOLUME 11.1 fl (7.4-10.4); RED BLOOD CELL COUNT 4.23 mill/uL (4.2-5.4); RED CELL DISTRIBUTION WIDTH 16.6 % (11.6-14.6)
[2020-06-02] MEDS: METHYLPREDNISOLONE SOD SUCC 40 MG/ML VIAL IV SCH ×2 (08:40→20:57)
[2020-06-02] MEDS: DOCUSATE SODIUM 100MG CAPSULE PO SCH ×2 (08:40→18:13)
[2020-06-02] MEDS: FAMOTIDINE 20MG/2ML VIAL IV SCH (08:40)
[2020-06-02] MEDS: ASCORBIC ACID 500 MG TABLET PO SCH ×2 (08:40→20:57)
[2020-06-02] MEDS: ERGOCALCIFEROL 50000UNITS CAPSULE PO SCH (08:42)
[2020-06-02 09:38] LABS: NUCLEATED RED BLOOD CELLS 1 /100 WBC
[2020-06-02 09:39] LABS: PLATELET ESTIMATE MARKEDLY DECREASED
[2020-06-02 09:42] LABS: PLATELET 29 x1000/uL (130-400)
[2020-06-02 12:57] LABS: BG BASE EXCESS -3.9 mmol/L (-2.0-2.0); BG CARBOXYHEMOGLOBIN 0.2 % (0.5-1.5); BG DEOXYHEMOGLOBIN 3.7 % (0.0-5.0); BG FRACTION INSPIRED OXYGEN 100; BG HCO3 ACT 21.4 mmol/L (22.0-26.0); BG METHEMOGLOBIN 0.4 % (0.0-1.5); BG OXYGEN SATURATION 96.3 % (92.0-98.5); BG OXYHEMOGLOBIN 95.7 % (94.0-97.0); BG PCO2 39.4 mmHg (35.0-45.0); BG PH 7.352 (7.350-7.450); BG PO2 89.7 mmHg (75.0-100.0); BG SAMPLE SITE RIGHT BRACHIAL; BG TOTAL HEMOGLOBIN 10.8 g/dL (12.0-18.0); BG VENT MODE PRVC
[2020-06-02] MEDS ORDERED: DEXTROSE 50% WATER 50ML SYRINGE IV PRN (15:45)
[2020-06-02] MEDS: BLOOD SUGAR DIAGNOSTIC STRIP TEST SCH (18:07)
[2020-06-02] MEDS: INSULIN LISPRO 100 UNITS/ML SUBCUT SCH (18:14)
[2020-06-03] VITALS (57 sets, daily range): BP systolic 99–152; BP diastolic 57–89
[2020-06-03] MEDS: BLOOD SUGAR DIAGNOSTIC STRIP TEST SCH ×5 (00:37→23:40)
[2020-06-03] MEDS: INSULIN LISPRO 100 UNITS/ML SUBCUT SCH ×5 (00:38→23:50)
[2020-06-03] MEDS: PROPOFOL 10MG/ML 100ML 100 ML IV PRN (02:28)
[2020-06-03] MEDS: IPRATROPIUM/ALBUTEROL 0.5-3(2.5)MG/3ML NEB HHN SCH ×4 (03:17→20:26)
[2020-06-03] MEDS: SODIUM CHLORIDE 0.9% INJ 3ML FLUSH IVF SCH ×3 (06:05→21:47)
[2020-06-03 07:13] LABS: HEMATOCRIT. 35.1 % (36.0-48.0); HEMOGLOBIN. 11.2 g/dL (12.0-16.0); MEAN CORPUSCULAR HEMOGLOBIN 29.9 pg (28.0-32.0); MEAN CORPUSCULAR VOLUME 93.5 fL (81.0-99.0); MEAN PLATELET VOLUME 10.6 fl (7.4-10.4); RED BLOOD CELL COUNT 3.75 mill/uL (4.2-5.4); RED CELL DISTRIBUTION WIDTH 16.2 % (11.6-14.6)
[2020-06-03 07:25] LABS: CHLORIDE 112 mEq/L (98-107)
[2020-06-03] MEDS ORDERED: PROPOFOL 10MG/ML 100ML 100 ML IV PRN (08:00)
[2020-06-03 08:37] LABS: PLATELET 12 x1000/uL (130-400)
[2020-06-03] MEDS: DOCUSATE SODIUM SUGAR FREE 100MG/10ML UDC PO SCH ×2 (08:50→21:55)
[2020-06-03] MEDS: METHYLPREDNISOLONE SOD SUCC 40 MG/ML VIAL IV SCH ×2 (08:50→21:47)
[2020-06-03] MEDS: ASCORBIC ACID 500 MG TABLET PO SCH ×2 (08:50→21:47)
[2020-06-03] MEDS: FAMOTIDINE 20MG/2ML VIAL IV SCH (08:51)
[2020-06-03] MEDS: DEXT 5% WATER + KCL 20MEQ/L 1,000 ML IV SCH ×4 (08:57→17:47)
[2020-06-03 10:36] LABS: BG BASE EXCESS -1.2 mmol/L (-2.0-2.0); BG DEOXYHEMOGLOBIN 4.1 % (0.0-5.0); BG HCO3 ACT 25.8 mmol/L (22.0-26.0); BG METHEMOGLOBIN 0.3 % (0.0-1.5); BG OXYGEN SATURATION 95.8 % (92.0-98.5); BG OXYHEMOGLOBIN 94.6 % (94.0-97.0); BG PCO2 53.1 mmHg (35.0-45.0); BG PH 7.305 (7.350-7.450); BG PO2 85.2 mmHg (75.0-100.0); BG SAMPLE SITE RIGHT BRACHIAL; BG TOTAL HEMOGLOBIN 13.2 g/dL (12.0-18.0); BG VENT MODE VENT- PRVC
[2020-06-03 21:24] LABS: PLATELET ESTIMATE MARKEDLY DECREASED
[2020-06-03] MEDS: INSULIN GLARGINE UD 100 UNITS/ML SYR SUBCUT SCH (22:47)
[2020-06-04] VITALS (84 sets, daily range): BP systolic 83–159; BP diastolic 50–92
[2020-06-04] MEDS: IPRATROPIUM/ALBUTEROL 0.5-3(2.5)MG/3ML NEB HHN SCH ×4 (02:39→20:40)
[2020-06-04] MEDS: DEXT 5% WATER + KCL 20MEQ/L 1,000 ML IV SCH (03:59)
[2020-06-04] MEDS: BLOOD SUGAR DIAGNOSTIC STRIP TEST SCH ×4 (05:12→23:08)
[2020-06-04] MEDS: SODIUM CHLORIDE 0.9% INJ 3ML FLUSH IVF SCH ×3 (05:24→23:08)
[2020-06-04] MEDS: INSULIN LISPRO 100 UNITS/ML SUBCUT SCH ×4 (05:27→23:20)
[2020-06-04 06:24] LABS: CHLORIDE 110 mEq/L (98-107)
[2020-06-04 06:37] LABS: PHOSPHORUS 2.5 mg/dL (2.5-4.9)
[2020-06-04 07:18] LABS: HEMATOCRIT. 33.9 % (36.0-48.0); HEMOGLOBIN. 11.3 g/dL (12.0-16.0); MEAN CORPUSCULAR HEMOGLOBIN 30.7 pg (28.0-32.0); MEAN CORPUSCULAR VOLUME 92.2 fL (81.0-99.0); MEAN PLATELET VOLUME 11.3 fl (7.4-10.4); RED BLOOD CELL COUNT 3.68 mill/uL (4.2-5.4); RED CELL DISTRIBUTION WIDTH 15.6 % (11.6-14.6)
[2020-06-04] MEDS: DOCUSATE SODIUM SUGAR FREE 100MG/10ML UDC PO SCH ×2 (08:48→23:08)
[2020-06-04] MEDS: FAMOTIDINE 20MG/2ML VIAL IV SCH (08:48)
[2020-06-04] MEDS: ACETAMINOPHEN 325MG TABLET PO PRN (08:48)
[2020-06-04] MEDS: ASCORBIC ACID 500 MG TABLET PO SCH ×2 (08:48→23:08)
[2020-06-04] MEDS: METHYLPREDNISOLONE SOD SUCC 40 MG/ML VIAL IV SCH ×2 (08:48→23:07)
[2020-06-04 09:14] LABS: PLATELET 12 x1000/uL (130-400)
[2020-06-04] MEDS: DEXT 5%/0.45% NACL 1000ML 1,000 ML IV SCH (10:00)
[2020-06-04 10:30] LABS: BG BASE EXCESS 0.8 mmol/L (-2.0-2.0); BG CARBOXYHEMOGLOBIN 0.6 % (0.5-1.5); BG DEOXYHEMOGLOBIN 4.3 % (0.0-5.0); BG HCO3 ACT 27.1 mmol/L (22.0-26.0); BG METHEMOGLOBIN 0.4 % (0.0-1.5); BG OXYGEN SATURATION 95.7 % (92.0-98.5); BG OXYHEMOGLOBIN 94.7 % (94.0-97.0); BG PCO2 50.3 mmHg (35.0-45.0); BG PH 7.349 (7.350-7.450); BG PO2 81.3 mmHg (75.0-100.0); BG SAMPLE SITE RIGHT BRACHIAL; BG TOTAL HEMOGLOBIN 12.6 g/dL (12.0-18.0); BG VENT MODE VENT - AC
[2020-06-04 10:32] LABS: NUCLEATED RED BLOOD CELLS 1 /100 WBC; PLATELET ESTIMATE MARKEDLY DECREASED
[2020-06-04] MEDS ORDERED: SODIUM POLYSTYRENE SULFONATE 15 G/60 ML BOT PO SCH (11:00)
[2020-06-04 13:37] LABS: FIBRINOGEN 421 mg/dL (200-400); INR 1.1; PARTIAL THROMBOPLASTIN TIME 22.7 sec (23.4-31.0); PROTHROMBIN TIME 11.5 sec (9.6-11.0)
[2020-06-04 13:42] LABS: D-DIMER > 35.20 mg/L FEU (<0.50)
[2020-06-04] MEDS: MORPHINE SULFATE 2 MG/ML CPJ (NOT FOR IM USE) IV PRN (18:43)
[2020-06-04] MEDS: INSULIN GLARGINE UD 100 UNITS/ML SYR SUBCUT SCH (23:18)
[2020-06-05] VITALS (69 sets, daily range): BP systolic 98–151; BP diastolic 53–87
[2020-06-05] MEDS: MORPHINE SULFATE 2 MG/ML CPJ (NOT FOR IM USE) IV PRN ×3 (02:18→17:56)
[2020-06-05] MEDS: IPRATROPIUM/ALBUTEROL 0.5-3(2.5)MG/3ML NEB HHN SCH ×4 (02:42→20:44)
[2020-06-05] MEDS: SODIUM CHLORIDE 0.9% INJ 3ML FLUSH IVF SCH ×3 (05:20→22:00)
[2020-06-05] MEDS: BLOOD SUGAR DIAGNOSTIC STRIP TEST SCH ×3 (05:21→17:48)
[2020-06-05] MEDS: DEXT 5%/0.45% NACL 1000ML 1,000 ML IV SCH (05:21)
[2020-06-05] MEDS: INSULIN LISPRO 100 UNITS/ML SUBCUT SCH ×3 (05:22→17:56)
[2020-06-05] MEDS: PANTOPRAZOLE SODIUM 40 MG/VIAL IV SCH (08:12)
[2020-06-05] MEDS: DOCUSATE SODIUM SUGAR FREE 100MG/10ML UDC PO SCH ×2 (08:12→20:09)
[2020-06-05] MEDS: ASCORBIC ACID 500 MG TABLET PO SCH ×2 (08:12→20:09)
[2020-06-05] MEDS: METHYLPREDNISOLONE SOD SUCC 40 MG/ML VIAL IV SCH ×2 (08:12→20:09)
[2020-06-05] MEDS: INSULIN GLARGINE UD 100 UNITS/ML SYR SUBCUT SCH (23:01)
[2020-06-06] VITALS (47 sets, daily range): BP systolic 90–136; BP diastolic 48–86
[2020-06-06] MEDS: BLOOD SUGAR DIAGNOSTIC STRIP TEST SCH ×4 (00:23→18:00)
[2020-06-06] MEDS: INSULIN LISPRO 100 UNITS/ML SUBCUT SCH ×4 (00:35→18:10)
[2020-06-06] MEDS: MORPHINE SULFATE 2 MG/ML CPJ (NOT FOR IM USE) IV PRN ×4 (00:36→21:49)
[2020-06-06] MEDS: DEXT 5%/0.45% NACL 1000ML 1,000 ML IV SCH ×2 (02:17→21:02)
[2020-06-06] MEDS: IPRATROPIUM/ALBUTEROL 0.5-3(2.5)MG/3ML NEB HHN SCH ×4 (02:50→22:29)
[2020-06-06] MEDS: SODIUM CHLORIDE 0.9% INJ 3ML FLUSH IVF SCH ×3 (05:09→21:02)
[2020-06-06 07:16] LABS: BASOPHILS % 0.1 % (0.0-2.0); HEMATOCRIT. 30.4 % (36.0-48.0); HEMOGLOBIN. 10.1 g/dL (12.0-16.0); LYMPHOCYTES % 10.4 % (20.0-50.0); MEAN CORPUSCULAR HEMOGLOBIN 30.7 pg (28.0-32.0); MEAN CORPUSCULAR VOLUME 92.7 fL (81.0-99.0); MEAN PLATELET VOLUME 11.3 fl (7.4-10.4); MONOCYTES % 3.7 % (2.0-8.0); NEUTROPHILS % 85.8 % (40.0-76.0); RED BLOOD CELL COUNT 3.28 mill/uL (4.2-5.4); RED CELL DISTRIBUTION WIDTH 15.5 % (11.6-14.6)
[2020-06-06 07:29] LABS: CHLORIDE 106 mEq/L (98-107)
[2020-06-06 07:40] LABS: PHOSPHORUS 4.2 mg/dL (2.5-4.9)
[2020-06-06 08:07] LABS: PLATELET 8 x1000/uL (130-400)
[2020-06-06] MEDS: DOCUSATE SODIUM SUGAR FREE 100MG/10ML UDC PO SCH ×2 (08:45→21:02)
[2020-06-06] MEDS: ASCORBIC ACID 500 MG TABLET PO SCH ×2 (08:45→21:02)
[2020-06-06] MEDS: METHYLPREDNISOLONE SOD SUCC 40 MG/ML VIAL IV SCH ×2 (08:45→21:02)
[2020-06-06] MEDS: PANTOPRAZOLE SODIUM 40 MG/VIAL IV SCH (08:45)
[2020-06-06 11:43] LABS: BG BASE EXCESS 0.3 mmol/L (-2.0-2.0); BG CARBOXYHEMOGLOBIN 0.8 % (0.5-1.5); BG DEOXYHEMOGLOBIN 11.7 % (0.0-5.0); BG FRACTION INSPIRED OXYGEN 100; BG METHEMOGLOBIN 0.2 % (0.0-1.5); BG OXYGEN SATURATION 88.2 % (92.0-98.5); BG OXYHEMOGLOBIN 87.3 % (94.0-97.0); BG PCO2 53.3 mmHg (35.0-45.0); BG PH 7.322 (7.350-7.450); BG SAMPLE SITE RIGHT BRACHIAL; BG TOTAL HEMOGLOBIN 11.2 g/dL (12.0-18.0); BG VENT MODE VENT - AC
[2020-06-06] MEDS ORDERED: SODIUM POLYSTYRENE SULFONATE 15 G/60 ML BOT NG SCH (14:00)
[2020-06-06 18:19] LABS: PLATELET ESTIMATE MARKEDLY DECREASED
[2020-06-06] MEDS: INSULIN GLARGINE UD 100 UNITS/ML SYR SUBCUT SCH (21:47)
[2020-06-07] VITALS (41 sets, daily range): BP systolic 26–125; BP diastolic 15–85
[2020-06-07] MEDS: BLOOD SUGAR DIAGNOSTIC STRIP TEST SCH ×5 (00:11→23:54)
[2020-06-07] MEDS: INSULIN LISPRO 100 UNITS/ML SUBCUT SCH ×5 (00:19→23:54)
[2020-06-07] MEDS: MORPHINE SULFATE 2 MG/ML CPJ (NOT FOR IM USE) IV PRN ×2 (01:53→10:19)
[2020-06-07 02:30] LABS: BG BASE EXCESS 0.5 mmol/L (-2.0-2.0); BG CARBOXYHEMOGLOBIN 0.7 % (0.5-1.5); BG DEOXYHEMOGLOBIN 19.5 % (0.0-5.0); BG FRACTION INSPIRED OXYGEN 100; BG HCO3 ACT 27.5 mmol/L (22.0-26.0); BG METHEMOGLOBIN 0.2 % (0.0-1.5); BG OXYGEN SATURATION 80.3 % (92.0-98.5); BG OXYHEMOGLOBIN 79.6 % (94.0-97.0); BG PCO2 55.8 mmHg (35.0-45.0); BG PO2 49.2 mmHg (75.0-100.0); BG SAMPLE SITE LEFT RADIAL; BG TOTAL HEMOGLOBIN 10.6 g/dL (12.0-18.0); BG VENT MODE VENT - AC
[2020-06-07 05:19] LABS: CHLORIDE 106 mEq/L (98-107)
[2020-06-07] MEDS: SODIUM CHLORIDE 0.9% INJ 3ML FLUSH IVF SCH ×3 (05:28→21:23)
[2020-06-07] MEDS: IPRATROPIUM/ALBUTEROL 0.5-3(2.5)MG/3ML NEB HHN SCH ×2 (06:00→20:28)
[2020-06-07 06:21] LABS: HEMATOCRIT. 29.3 % (36.0-48.0); HEMOGLOBIN. 9.6 g/dL (12.0-16.0); MEAN CORPUSCULAR HEMOGLOBIN 30.4 pg (28.0-32.0); RED BLOOD CELL COUNT 3.15 mill/uL (4.2-5.4); RED CELL DISTRIBUTION WIDTH 15.9 % (11.6-14.6)
[2020-06-07 06:36] LABS: PLATELET 8 x1000/uL (130-400)
[2020-06-07 09:52] LABS: BG BASE EXCESS 1.3 mmol/L (-2.0-2.0); BG DEOXYHEMOGLOBIN 15.3 % (0.0-5.0); BG FRACTION INSPIRED OXYGEN 100; BG HCO3 ACT 27.6 mmol/L (22.0-26.0); BG METHEMOGLOBIN 0.1 % (0.0-1.5); BG OXYGEN SATURATION 84.5 % (92.0-98.5); BG OXYHEMOGLOBIN 83.6 % (94.0-97.0); BG PCO2 51.8 mmHg (35.0-45.0); BG PH 7.345 (7.350-7.450); BG SAMPLE SITE RIGHT BRACHIAL; BG TOTAL HEMOGLOBIN 10.6 g/dL (12.0-18.0); BG TOTAL RESPIRATORY RATE 37 b/min; BG VENT MODE VENT - AC
[2020-06-07] MEDS: ASCORBIC ACID 500 MG TABLET PO SCH ×2 (10:19→21:00)
[2020-06-07] MEDS: METHYLPREDNISOLONE SOD SUCC 40 MG/ML VIAL IV SCH ×2 (10:19→21:21)
[2020-06-07] MEDS: PANTOPRAZOLE SODIUM 40 MG/VIAL IV SCH (10:19)
[2020-06-07] MEDS: DOCUSATE SODIUM SUGAR FREE 100MG/10ML UDC PO SCH ×2 (10:19→21:00)
[2020-06-07] MEDS ORDERED: FENTANYL CITRATE/PF 1,000 MCG in SODIUM CHLORIDE 0.9% 80 ML IV PRN (14:00)
[2020-06-07 14:19] LABS: NUCLEATED RED BLOOD CELLS 17 /100 WBC; PLATELET ESTIMATE MARKEDLY DECREASED
[2020-06-07] MEDS ORDERED: FENTANYL CITRATE 2,500 MCG in SODIUM CHLORIDE 0.9% 200 ML IV PRN (14:30)
[2020-06-07 14:39] LABS: BG CARBOXYHEMOGLOBIN 0.8 % (0.5-1.5); BG DEOXYHEMOGLOBIN 20.4 % (0.0-5.0); BG FRACTION INSPIRED OXYGEN 100; BG HCO3 ACT 23.5 mmol/L (22.0-26.0); BG METHEMOGLOBIN 0.1 % (0.0-1.5); BG OXYGEN SATURATION 79.4 % (92.0-98.5); BG OXYHEMOGLOBIN 78.7 % (94.0-97.0); BG PCO2 54.5 mmHg (35.0-45.0); BG PH 7.253 (7.350-7.450); BG PO2 50.8 mmHg (75.0-100.0); BG SAMPLE SITE LEFT RADIAL; BG TOTAL HEMOGLOBIN 11.2 g/dL (12.0-18.0); BG TOTAL RESPIRATORY RATE 37 b/min; BG VENT MODE VENT - AC
[2020-06-07] MEDS ORDERED: SODIUM BICARBONATE 8.4% 1 MEQ/ML 50ML SYR IV NR ×2 (15:00→17:15)
[2020-06-07] MEDS: NOREPINEPHRINE 32 MG in DEXT 5% WATER 218 ML IV PRN ×2 (15:22→22:08)
[2020-06-07] MEDS: PHENYLEPHRINE 100 MG in DEXT 5% WATER 240 ML IV PRN (16:42)
[2020-06-07] MEDS ORDERED: DOPAMINE 400MG/250ML PREMIX 250 ML IV PRN (16:45)
[2020-06-07 17:00] LABS: BG BASE EXCESS -3.8 mmol/L (-2.0-2.0); BG CARBOXYHEMOGLOBIN 0.6 % (0.5-1.5); BG DEOXYHEMOGLOBIN 58.7 % (0.0-5.0); BG METHEMOGLOBIN 0.1 % (0.0-1.5); BG OXYGEN SATURATION 40.9 % (92.0-98.5); BG OXYHEMOGLOBIN 40.6 % (94.0-97.0); BG PCO2 75.6 mmHg (35.0-45.0); BG PH 7.155 (7.350-7.450); BG PO2 31.3 mmHg (75.0-100.0); BG SAMPLE SITE RIGHT RADIAL; BG TOTAL RESPIRATORY RATE 30 b/min; BG VENT MODE VENT- PRVC
[2020-06-07] MEDS ORDERED: VASOPRESSIN 20 UNIT in SODIUM CHLORIDE 0.9% 99 ML IV PRN (17:00)
[2020-06-07] MEDS ORDERED: SODIUM BICARBONATE 100 MEQ in SODIUM CHLORIDE 0.45% 1,000 ML IV SCH (18:00)
[2020-06-07] MEDS: SUCRALFATE 1 G/10 ML UDC PO SCH ×2 (18:14→23:56)
[2020-06-07] MEDS: INSULIN GLARGINE UD 100 UNITS/ML SYR SUBCUT SCH (22:42)
[2020-06-08] MEDS: PHENYLEPHRINE 100 MG in DEXT 5% WATER 240 ML IV PRN (00:25)
== END 2020-06-08 05:00 | disposition expired | DRG 4 ==
LOC: ER 14:53 → 7WST 20:11 → ENRESERV 05-18 11:03 → 5WST 05-19 10:42 → 3WST 05-30 21:42 → 5EST 05-31 13:30
PROVIDERS: ADMIT Internal Medicine; ATTEND Internal Medicine
PROC: 5A09557 Assistance with Respiratory Ventilation, Greater than 96 Consecutive Hours, Continuous Positive Airway Pressure (ICD-10-PCS; principal; 2020-05-23)
PROC: 0B110F4 Bypass Trachea to Cutaneous with Tracheostomy Device, Open Approach (ICD-10-PCS; 2020-05-31)
PROC: 5A1955Z Respiratory Ventilation, Greater than 96 Consecutive Hours (ICD-10-PCS; 2020-05-31)
PROC: 03HY33Z Insertion of Infusion Device into Upper Artery, Percutaneous Approach (ICD-10-PCS; 2020-05-31)
PROC: 02HV33Z Insertion of Infusion Device into Superior Vena Cava, Percutaneous Approach (ICD-10-PCS; 2020-06-05)
PROC: B548ZZA Ultrasonography of Superior Vena Cava, Guidance (ICD-10-PCS; 2020-06-05)
DX: J96.01 Acute respiratory failure with hypoxia (principal); A41.9 Sepsis, unspecified organism; J18.9 Pneumonia, unspecified organism; J44.0 Chronic obstructive pulmonary disease with (acute) lower respiratory infection; N17.9 Acute kidney failure, unspecified; G93.40 Encephalopathy, unspecified; J44.1 Chronic obstructive pulmonary disease with (acute) exacerbation; E46 Unspecified protein-calorie malnutrition; E87.0 Hyperosmolality and hypernatremia; E87.2 Acidosis; K92.2 Gastrointestinal hemorrhage, unspecified; I82.433 Acute embolism and thrombosis of popliteal vein, bilateral; E78.5 Hyperlipidemia, unspecified; Z20.822 Contact with and (suspected) exposure to COVID-19; Z66 Do not resuscitate; N18.9 Chronic kidney disease, unspecified; I48.91 Unspecified atrial fibrillation; E11.22 Type 2 diabetes mellitus with diabetic chronic kidney disease; E11.65 Type 2 diabetes mellitus with hyperglycemia; E78.00 Pure hypercholesterolemia, unspecified; E87.5 Hyperkalemia; I95.9 Hypotension, unspecified; I12.9 Hypertensive chronic kidney disease with stage 1 through stage 4 chronic kidney disease, or unspecified chronic kidney disease; I27.20 Pulmonary hypertension, unspecified; R74.01 Elevation of levels of liver transaminase levels; Z51.5 Encounter for palliative care; D69.6 Thrombocytopenia, unspecified; I25.10 Atherosclerotic heart disease of native coronary artery without angina pectoris; R13.12 Dysphagia, oropharyngeal phase; Z87.891 Personal history of nicotine dependence; Z90.710 Acquired absence of both cervix and uterus; Z79.82 Long term (current) use of aspirin; Z79.899 Other long term (current) drug therapy; Z79.51 Long term (current) use of inhaled steroids; Z86.711 Personal history of pulmonary embolism; Z68.25 Body mass index [BMI] 25.0-25.9, adult
CPT/HCPCS: 36415; 36600; 71045; 71275; 76937; 80048; 80053; 80076; 80185; 81003; 82375; 82728; 82805; 82962; 83036; 83605; 83735; 83880; 84100; 84478; 84484; 85025; 85362; 85379; 85384; 86140; 86141; 86850; 86900; 87426; 87635; 93005; 93306; 93970; 94002; 94003; 94640; 94660; 96360; 96361; 99285; C1725; C1769; C1893; C9113; J0690; J1100; J1160; J1200; J1265; J1650; J1815; J1940; J1956; J2250; J2270; J2370; J2405; J2704; J2920; J2930; J3010; J3490; J7030; J7050; J7060; Q9967